=== PATIENT | female | born 1960 | race Caucasian/White ===

== ENCOUNTER 2018-09-04 11:01 | Outpatient (REF) | payer OTHER, SELFPAY ==
--- NOTE | 2018-09-04 10:40 | PAPFT_PTH ---
PATIENT: GADIEL OTT LOC: [facility] U#:[id number] AGE/SX: 58/F ROOM: RE09/04/[address]: Reba Ochoa MD : 1960 BED: DIS: 09/04/2018 SPEC #: [id number] RECD: 09/04/18 13:00 STATUS: MICHELLERola REQ #: [id number] EFRAIN: 09/04/18 10:[address]: Reba Ochoa DEPT: [facility] Cytology RECD BY: Alicja Coppola ENTERED: 09/04/18 13:01 SP TYPE: PAPFT OTHR DR: Nicolle De Guzman Tissues: 1 - CX/ENDOCX FOR PAP SMEARS Procedures: PAP THIN PREP/[facility] Screening HPV DNA PROBE Comments: [id number]
== END 2018-09-04 11:21 ==
LOC: LBN 11:01
PROVIDERS: PCP Emergency Medicine; Visit Provider Obstetrics & Gynecology
DX: Z12.4 Encounter for screening for malignant neoplasm of cervix (principal); Z11.51 Encounter for screening for human papillomavirus (HPV)
CPT/HCPCS: 88142; 87624

== ENCOUNTER 2018-09-09 13:00 | Outpatient (CLI) | payer OTHER, SELFPAY ==
[2018-09-09 14:37] LABS: HCT 40.6 % (36.0-46.0); HGB 13.4 g/dL (12.0-15.5); Mean Corpuscular Hemoglobin 29.2 pg (27.0-33.0); Mean Corpuscular Volume 88.5 fL (80-95); Mean Platelet Volume 10.4 fL (8.0-11.0); Platelet Count 245 x1000/uL (130-400); RBC 4.59 m/cumm (4.00-5.20); RBC Distribution Width 13.4 % (11.7-14.6); White Blood Cell Count 8.02 k/cumm (4.4-10.8)
[2018-09-09 15:42] LABS: BUN 16 mg/dL (7-18); CREATININE 0.65 mg/dL (0.55-1.02); Glucose 91 mg/dL (70-100)
== END 2018-09-09 13:20 ==
PROVIDERS: PCP Physician Assistant Medical; Visit Provider Obstetrics & Gynecology
DX: N95.0 Postmenopausal bleeding (principal); Z01.818 Encounter for other preprocedural examination
CPT/HCPCS: 36415; 82947; 84520; 85027; 86850; 86900; 86901; 82565

== ENCOUNTER 2018-09-18 12:01 | Day surgery (SDC) | payer OTHER, SELFPAY ==
[2018-09-18 12:13] VITALS: BP 137/80; PULSE 76; RESP 16; TEMP 36.7; O2SAT 99
[2018-09-18] MEDS: Lactated Ringers 1,000 ML 125 ML IV (12:26)
--- NOTE | 2018-09-18 13:30 | ENDOMET_PTH ---
PATIENT: GADIEL OTT LOC: [facility] U#:[id number] AGE/SX: 58/F ROOM: RE09/18/[address]: Reba Ochoa MD : 1960 BED: DIS: 09/18/2018 SPEC #: [id number] RECD: 09/18/18 18:04 STATUS: DWAINE REQ #: [id number] EFRAIN: 09/18/18 13:[address]: Reba Ochoa DEPT: Surgical Specimen RECD BY: Alicja Coppola ENTERED: 09/18/18 18:05 SP TYPE: Endomet OTHR DR: Yari Lewis Tissues: 1 - ENDOMETRIUM BX/CURRETTE 2 - ENDOCERVICAL BX/CURRETTE Procedures: GROSS AND MICRO LEVEL 4 Comments: [id number]
[2018-09-18 13:50] VITALS: BP 104/49; PULSE 80; RESP 15; TEMP 36.4; O2SAT 99
[2018-09-18 13:55] VITALS: BP 107/57; PULSE 74; RESP 10; TEMP 36.4; O2SAT 97
[2018-09-18 14:00] VITALS: BP 109/64; PULSE 75; RESP 10; TEMP 36.4; O2SAT 97
[2018-09-18 14:05] VITALS: BP 111/61; PULSE 71; RESP 10; O2SAT 97
--- NOTE | 2018-09-18 14:05 | W.PM.OP ---
Date of service: 09/18/18 Time of Service: 14:06 Operative Note DATE OF PROCEDURE: 09/18/18 PRE-OP DIAGNOSIS: persistent Postmenopausal bleeding POST-OP DIAGNOSIS: same PROCEDURE: hysteroscopy D+C SURGEON: Reba Ochoa ANESTHESIA: MAC ESTIMATED BLOOD LOSS: 10 PATHOLOGY: other (EMC, ECC) COMPLICATIONS: None Patient was transported to: PACU Patient's condition: stable Implants: none Indications: persistent PMPB Findings: atrophic endometrium Procedure Description: Hysteroscopy, D+C
--- NOTE | 2018-09-18 14:28 | PDOC.DSDIS_ITS ---
Discharge Plan Disposition Patient Disposition: HOME Condition: Stable Discharge Details Reason For Visit: Hysteroscopy Attending Provider: Reba Ochoa Primary Care Provider: Yari Lewis Home Meds and New Rx's Prescriptions: Continued Humira 40 mg/0.4 mL syringe kit 40 mg SC Q2W RF: 0 losartan 25 mg tablet 25 mg PO HS RF: 0 [id number]-tuna oil 25-5-113.5 mg tablet,chewable 1 cap PO DAILY RF: 0 ibuprofen 200 mg capsule 200 mg PO QID PRNRF: 0 aspirin 325 mg tablet 325 mg PO PRN PRNRF: 0 Zyrtec 10 mg capsule 10 mg PO DAILY RF: 0 ascorbic acid (vitamin C) [Vitamin C] 1,000 mg Tablet 1 g PO PRN PRNRF: 0 Discharge Instructions Instructions: Hysteroscopy (GEN) Additional Instructions: Postoperative Instructions Outpatient Gynecology * Because there will be medication in your system for the next 24 hours, you may feel a little sleepy. Your coordination will be affected. Therefore: Do not drive or operate dangerous equipment for 24 hours. Do not drink alcoholic beverages for 24 hours (not even beer). Plan to go home and rest for the day. * Rest, drink liquids and eat lightly for the rest of the day. Do not plan to return to normal activity for two full days. Some women require 5-7 days to feel 100 percent. * Arrange to have someone stay with you for the rest of the day. You should arrange for child nurse on the day of surgery. * If you have incisions, remove the bandage in 24 hours. * You may have a sore throat or hoarseness after surgery. This usually lasts a short time and is relieved by drinking liquids. If hoarseness persists longer than 24 hours, please contact the anesthesia department by calling the hospital. * Take Tylenol or Advil for cramping. If that does not work, you may be too active so try cutting back on your activities. You may use up to 3 Advil every (4) four to (6) six hours. Use the prescription medication in between doses of Advil if needed. * You should be able to urinate as usual following the surgery. * Any form of surgery can cause your menstrual cycle to become irregular. If you have had a D and C you may spot for a week after surgery and your next period will start in (4) four to (6) six weeks. * If you have had the sterilization procedure no follow-up appointment is necessary. For other procedures you need a follow-up appointment (4) four to (6) six weeks following surgery. Please call the office for an appointment. * If you had a Laparascopic procedure there are no restrictions on douching, tampons, intercourse or tub baths. If you had any vaginal procedure you may not use tampons, have intercourse or douche for 2 weeks. you may take a shower or bath. * Please report any of the following conditions or any questions regarding your condition to your doctor and the Day Surgery Unit: Increased drainage or foul smelling drainage. Temperature of 101 F or above. Excessive pain. * If you are unable to contact your doctor, contact the hospital at [phone]. * Continue all your regular medications unless directed otherwise. Revised 03/13/11 Stand Alone Forms: [facility] Post Gynecology Surgery Referrals: Reba Ochoa [ [facility] STAFF PHYSICIAN] - (2 weeks) Activity:: Activity as Tolerated Shower/Bathe:: 24 hours Diet:: As Tolerated Discharge Orders Discharge Orders: Discharge Order (Routine); Ordered 09/18/18 Ordered By: Reba Ochoa
[2018-09-18 14:55] VITALS: BP 107/64; PULSE 67; RESP 16; TEMP 36.1; O2SAT 100
--- NOTE | 2018-09-18 16:44 | ROE_ITS ---
DATE OF PROCEDURE: September 18, 2018 PREOPERATIVE DIAGNOSIS: Persistent postmenopausal bleeding. POSTOPERATIVE DIAGNOSIS: Persistent postmenopausal bleeding. PROCEDURE: Hysteroscopy, dilatation and curettage. SURGEON: Reba Ochoa M.D. ANESTHESIA: MAC and 2% lidocaine paracervical block. ESTIMATED BLOOD LOSS: <10 cc FLUIDS: Approximately 700 cc FINDINGS: Atrophic endometrium without polyp or fibroid. PROCEDURE: The patient was taken to the Operating Room where she was properly identified. She was t hen placed on the operating table in a dorsal supine position and then positioned in the dorsal litho maci position while awake due to back issues. She was then given MAC anesthesia, prepped and draped in the normal sterile fashion. A formal time-out procedure was then performed confirming patient and procedure. A bivalve speculum was placed. The cervix was visualized and grasped on the anterior lip with single -tooth tenaculum. A paracervical block of 2% lidocaine with epinephrine at 2, 10, 5, and 7 was perfo rmed. The cervix was then dilated and the hysteroscope advanced into the uterine cavity with no diff iculty. Both ostia were visualized as well as the entire uterine cavity. There was no evidence of p olyp or fibroid. The hysteroscope was removed and a sharp curettage was performed to a good cry. Th e endometrial curettings were sent to Pathology for permanent evaluation. An ECC was performed and, again, the tissue sample was sent to Pathology for evaluation. All equipment was removed from the uterus and cervix. Hemostasis was confirmed. The patient was nayeli kened and taken to the PACU in stable condition. Sponge, lap, needle, and instrument counts were correct x2.
== END 2018-09-18 15:35 | disposition home or self-care (01) ==
PROVIDERS: PCP Physician Assistant Medical; Visit Provider Obstetrics & Gynecology
PROC: 0UDB8ZZ Extraction of Endometrium, Via Natural or Artificial Opening Endoscopic (ICD-10-PCS; CPT 58558; principal; 2018-09-18 13:00)
DX: N95.0 Postmenopausal bleeding (principal); I10 Essential (primary) hypertension; K21.9 Gastro-esophageal reflux disease without esophagitis
CPT/HCPCS: 58120; 88305; J1885; J2250; J2310; J2405; J3010